=== PATIENT | female | born 2005 | race Caucasian/White ===

== ENCOUNTER 2025-09-13 14:11 | Outpatient (AMB) | payer OTHER, SELFPAY ==
--- NOTE | 2025-09-13 14:20 | A.OFFVIS_ITS ---
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 Moving forward, patient will be under Dr. Villagran's care as he is the rounding steeping press tender this week. 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 Patient states that she has noticed that in the last couple of months, patient has been having shortness of breath quickly with exertion specially with long distance races where at times it gets very hard to breathe and patient is fatigued. Patient also notes that there has been couple episodes where patient has had a lot of vomiting after finishing a race and that it takes couple hours for her to recover. She remembers 1 time patient had vomiting after finishing the race and later that evening and another episode the next morning. Patient states that this is very unusual for her however patient does note that these only happens when patient is in a competitive race and none during her training sessions where patient is running the same amount of time in length. Patient denies any known history of coronary artery disease, ischemic disease, or cardiomyopathy. Patient with no known family history of heart disease either. Patient otherwise is denying any associated symptoms of exertional chest pain, palpitations, dizziness, orthopnea, PND, leg edema, presyncope or syncope. Patient denies any use of stimulants such as marijuana, alcohol, illicit drugs, or tobacco use. [facility] Social History Alcohol intake: never Patient Tobacco Use Status: Never used Tobacco Review of Systems Const Denies daytime sleepiness, Denies difficulty sleeping, Denies snoring, Denies stops breathing during sleep and Denies weakness Card Denies chest pain, Denies rapid heart rate, Denies irregular heart rhythm, Denies claudication, Denies leg edema, Denies lightheadedness, Denies palpitations, Denies dyspnea, Denies dyspnea on exertion, Denies orthopnea, Denies paroxysmal nocturnal dyspnea and Denies slow heart rate Resp Denies cough, Denies dyspnea, Denies dyspnea on exertion and Denies snoring GI Reports no additional complaints, Denies hematochezia, Denies change in stool character and Denies dyspepsia Musc Denies abnormal gait, Denies muscle weakness and Denies numbness Neuro Denies abnormal gait, Denies numbness and Denies weakness Endo Denies palpitations Physical Exam Vital Signs: Last Vital Signs Pulse 58 09/13/25 14:22 BP 106/62 09/13/25 14:22 BMI result Body Mass Index 24.2 Const General: cooperative, healthy appearing, comfortable and no acute distress Orientation/consciousness: patient oriented x3 HEENT Head: Yes normal to inspection Neck Neck: Yes normal visual inspection, Yes trachea midline and Yes supple Chest Chest palpation & inspection: normal inspection of the chest Resp Effort & Inspection: normal respiratory effort Auscultation: clear to auscultation bilaterally, no crackles, no rales, no rhonchi and no wheezes Cardio Jugular venous distension: no JVD Palpation: normal PMI Rate: regular rate Rhythm: regular rhythm Heart sounds: S1 normal heart sound present, S2 normal heart sound present, no click, no gallops, no murmurs and no rubs Peripheral pulses: Peripheral pulses 2+ throughout GI Inspection: Yes normal to inspection Palpation (GI): Soft to palpation Auscultation: normal bowel sounds Skin General skin exam: no rashes or lesions noted Neuro General: patient oriented x3 Extrem General: Yes normal to inspection, No no pedal edema and No calf tenderness Psych Appearance: grossly normal Mental Status: mental status grossly normal Speech and movement: Normal speech and movement present Office Procedures EKG Details: EKG today showed sinus bradycardia with sinus arrhythmia at a rate of 58 beats per minute, incomplete right bundle branch block, nonspecific STT wave, [place], [place] [address]-[id number], Complete Assessment & Plan Assessment & Plan (1) SOB (shortness of breath): Code(s): R06.02 - Shortness of breath Category: Medical Plan: Patient's symptoms atypical in nature for cardiac etiology and more likely due to hyperventilation and stress specially knowing that her symptoms are only during competitive races even though she runs the same amount of time and length during her training sessions. However, to rule out cardiac etiology, we will get a treadmill stress test to look for any ischemic changes. Patient will also undergo an echocardiogram to look for LV systolic and diastolic dysfunction as well as cardiac structural abnormality. Patient also was made aware other possible causes such as stress and hyperventilation. Patient understanding of this. Blood pressure is within normal limits. Advised on heart healthy diet, regular exercise, stress mitigation strategies, adequate hydration, and avoidance of stimulants. Follow up after testings. In the interim, patient will call the office with any concerns or change in symptoms. This note was generated using voice recognition software. While every effort has been made to ensure accuracy and proper embroidery finisher, there may be occasional errors that could affect the content or meaning of the described symptoms. Orders: Orders CA echo transthoracic complete Today R06.02 - Shortness of breath AMB EKG-In Office Today R06.02 - Shortness of breath CA stress test Today R06.02 - Shortness of breath Coding Level of Care Code New Pt Level 4 (74749) Complex visit Add On G2211 Diagnoses SOB (shortness of breath) R06.02 CPT Codes EKG - CPT: 60799-[id number], Complete ([id number]) Time Spent (min) 32 Comment Time spent in reviewing the chart, test results, assessment, counseling and documentation.
[2025-09-13 14:22] VITALS: BP 106/62; PULSE 58; BMI 24.2
--- OUTSIDE RECORDS SUMMARY | 2025-09-13 23:07 | XMS_ITS | Clinical Summary ---
Author Organization [facility] Address [address] [place] [id number] Phone Care Team Providers Care Jewel Sorter Name Role Phone Pcp, Unknown Primary Care Provider Unavailabl e Allergies No known active allergies Medications No known medications Encounters Date Type Department Care Team Description 08/01/2025 5:45 PM EDT - 08/01/2025 9:54 PM EDT Emergency [facility] [address] [place] [address] Discharge Disposition: Home or Self Care from Last 3 Months Social History Tobacco Use Types Packs/Day Years Used Date Smoking Tobacco: Never Assessed Education Answer Date Recorded Are you interested in more education? Not on gonzalo e 06/06/2024 Are you concerned about learning? Not on file 06/06/2024 No 06/06/2024 No 06/06/2024 Food Answer Date Recorded Within the past 6 months we worried whether our food would run out before we got money to buy more. Never True 08/01/2025 Within the past 6 months the food we bought just didn't last and we didn't have enough money to get more. Never True Residential Stability Answer Date Recor ded What is your housing situation today? I have lavell sing 08/01/2025 How many times have you move d in the past 12 months? Zero (I did not move) 08/01/2025 Paying for Meds Answer Date Recorded Do you have trouble paying for medicines? No 08/01/2025 Paying Utility Bills Answer Date Record ed Do you have trouble paying your heating or elect ricity bill? No 08/01/2025 Transportation Answer Date Recorded Has the lack of transportati on kept you from medical appointments or from getting medications? No 08/01/2025 Digital Access Answer Date Recorded No 08/01/2025 Yes 08/01/2025 Do you have reliable internet access at home? Ye s 08/01/2025 Do you have a device (e.g., phone, tablet, computer) with a working camera? Yes 08/01/2025 Intimate Partner Violence Answer Date R ecorded Are you denied basic needs s uch as food, clothing, or medical care? No 08/01/2025 In the past 12 months have y ou been in a relationship with a person who hurts, threatens, or tries to control you? No 08/01/2025 Are you denied basic needs s uch as food, clothing, or medical care? No 08/01/2025 In the past 12 months have y ou been in a relationship with a person who hurts, threatens, or tries to control you? No 08/01/2025 Comments Unknown Sex and Gender Information Value Date Recorded Sex Assigned at Not on file Legal Sex Female 6:53 PM EST Gender Identity Not on file Sexual Orientation Not on file Last Filed Vital Signs Vital Sign Reading Time Taken Comments Blood Pressure 118/79 08/01/2025 9:21 PM EDT Pulse 64 08/01/2025 9:21 PM EDT Temperature 36.5 C (97.7 F) 08/01/2025 9:21 PM EDT Respiratory Rate 16 08/01/2025 9:21 PM EDT Oxygen Saturation 100% 08/01/2025 9:21 PM EDT Inhaled Oxygen Concentration - - Weight 63.5 kg (140 lb) 08/01/2025 4:58 PM EDT Height 165.1 cm (5' 5 ) 08/01/2025 4:58 PM EDT Body Mass Index 23.3 08/01/2025 4:58 PM EDT Plan of Treatment Health Maintenance Due Date Last Done Comments MMR VACCINES (1 of 1 - Stand gisele series) 2005 DEVELOPMENTAL/BEHAVIORAL SCR EENING (PHQ, PSC, or SWYC) 2007 COMBINED DTaP,Tdap,Td (1 - Tdap) 2011 DEPRESSION SCREENING 2016 SMOKING Hx and SMOKELESS TOB ACCO SCREENING 2017 VARICELLA VACCINES (1 of 2 - 13+ 2-dose series) 2017 HPV VACCINES (1 - 3-dose series) 2019 CHLAMYDIA SCREENING 2020 MENINGOCOCCAL VACCINES (B) ( 1 of 2 - Standard) 2020 ADOLESCENT UNIVERSAL LIPID SCREENING 2021 HEPATITIS C SCREENING 2022 HIV ONE-TIME SCREENING (18-6 5 YEARS) 2022 INFLUENZA VACCINE (#1) 2025 COVID-19 VACCINE ( - 2024-2 6 season) 2025 HEPATITIS A VACCINES Aged Out No long er eligible based on patient's age to complete this topic HIB VACCINES Aged Out No longer eligi ble based on patient's age to complete this topic MENINGOCOCCAL VACCINES (ACWY) Aged Out No longer eligible based on patient's age to complete this topic PNEUMOCOCCAL VACCINES (0-49 years) Aged Out No longer eligible based on patient's age to complete this topic Medical Devices Not on file Procedures Procedure Name Priority Date/Time Associated Diagnosis Comments BASIC METABOLIC PANEL (BMP) STAT 08/01/2025 8:35 PM EDT CREATINE KINASE (CK) Routine 08/01/2025 5:34 PM EDT LIPASE STAT 08/01/2025 5:34 PM EDT LFTS (HEPATIC PANEL) STAT 08/01/2025 5:34 PM EDT HCG, SERUM QUALITATIVE STAT 08/01/2025 5:34 PM EDT BASIC METABOLIC PANEL (BMP) STAT 08/01/2025 5:34 PM EDT CBC AND DIFFERENTIAL STAT 08/01/2025 5:34 PM EDT URINALYSIS WITH REFLEX TO URINE CULTURE STAT 08/01/2025 5:16 PM EDT from Last 3 Months Results * (ABNORMAL) Basic metabolic panel (08/01/2025 8:35 PM EDT) Only the most recent of2 resultswithin the time period is included. SODIUM 139 133 - 146 mmol/L [facility] CHLORIDE 105 96 - 108 mmol/L [facility] POTASSIUM 3.8 3.3 - 5.1 mmol/L [facility] CO2 24 21 - 35 mmol/L [facility] BUN 20(H) 6 - 19 mg/dL [facility] CREATININE 1.70(H) 0.5 - 1.5 mg/dL [facility] GLUCOSE 101(H) 70 - 99 mg/dL [facility] CALCIUM 8.2(L) 8.4 - 10.3 mg/dL [facility] EGFR 44(L) >59 mL/min/1.7 3m2 [facility] Comment:Estimated glomerular filtration rate calculated using the CKD-EPI refit equation. ANION GAP 14 10 - 20 mmol/L [facility] Blood 08/01/2025 8:35 PM EDT 08/01/2025 8:39 PM EDT us Phan Carmona PA-C LAB BLOOD BKR ORDERABLES Fin al Result Performing Organization Address City/[facility]/ZIP Co de Phone Number [address] [address] * HCG, serum qualitative (08/01/2025 5:34 PM EDT) HCG, QUALITATIVE Negative Negative IU/L [facility] Blood 08/01/2025 5:34 PM EDT 08/01/2025 5:39 PM EDT us Dayne Obrien MD LAB BLOOD BKR ORDERABLES Fi nal Result [address] [address] * LFTs (hepatic panel) (08/01/2025 5:34 PM EDT) ALKALINE PHOSPHATASE 77 39 - 117 U/L [facility] TOTAL BILIRUBIN 0.4 0.0 - 1.2 mg/dL [facility] DIRECT BILIRUBIN 0.1 0.0 - 0.2 mg/dL [facility] Bilirubin (Indirect) NOT CALCULATED 0 - 1.5 mg/dL [facility] AST 18 0 - 37 U/L [facility] ALT 11 0 - 40 U/L [facility] TOTAL PROTEIN 6.9 6.5 - 8.0 g/dL [facility] ALBUMIN 4.3 3.9 - 4.8 g/dL [facility] GLOBULIN 2.6 1 - 4.8 g/dL [facility] A/G Ratio 1.65 1.00 - 4.80 RATIO [facility] Blood 08/01/2025 5:34 PM EDT 08/01/2025 5:39 PM EDT us Dayne Obrien MD LAB BLOOD BKR ORDERABLES Fi nal Result Performing Organization Address City/State/[facility] Co de Phone Number [address] [address] * (ABNORMAL) CBC and differential (08/01/2025 5:34 PM EDT) WBC 6.60 4.00 - 11.00 K/uL [facility] RBC 4.02 4.00 - 5.20 M/uL [facility] HGB 11.7(L) 12.0 - 16.0 g/dL [facility] HCT 36.1 36.0 - 46.0 % [facility] PLT 222 150 - 450 K/uL [facility] MCV 89.8 80.0 - 100.0 fL [facility] MCH 29.1 27.0 - 31.0 pg [facility] MCHC 32.4 32.0 - 36.0 g/dL [facility] RDW 13.0 11.5 - 14.5 % [facility] MPV 8.9 8.4 - 12.0 [facility] NRBC 0.00 0.00 /100 WBCs [facility] ABSOLUTE NRBC 0.00 0.00 K/uL [facility] DIFF METHOD Auto [facility] NEUTS 61.6 48.0 - 76.0 % [facility] LYMPHS 24.4 18.0 - 41.0 % [facility] MONOS 12.1(H) 4.0 - 11.0 % [facility] EOS 1.2 0.0 - 5.0 % [facility] BASOS 0.5 0.0 - 1.5 % [facility] Granulocytes, immature (%) 0.2 0.0 - 0.9 % [facility] ABSOLUTE NEUTS 4.07 1.92 - 7.60 K/uL [facility] ABSOLUTE LYMPHS 1.61 0.72 - 4.10 K/uL [facility] ABSOLUTE MONOS 0.80 0.16 - 1.10 K/uL [facility] ABSOLUTE EOS 0.08 0.00 - 0.50 K/uL [facility] ABSOLUTE BASOS 0.03 0.00 - 0.15 K/uL [facility] Granulocytes, immature 0.01 0.00 - 0.09 K/uL [facility] Blood 08/01/2025 5:34 PM EDT 08/01/2025 5:39 PM EDT Dayne Obrien MD LAB BLOOD BKR ORDERABLES Fi nal Result [address] [address] * Lipase (08/01/2025 5:34 PM EDT) LIPASE 26 16 - 63 U/L [facility] Blood 08/01/2025 5:34 PM EDT 08/01/2025 5:39 PM EDT Dayne Obrien MD LAB BLOOD BKR ORDERABLES Fi nal Result [address] [address] * CPK (creatine kinase) (08/01/2025 5:34 PM EDT) CREATINE KINASE 116 21 - 215 U/L [facility] 08/01/2025 5:34 PM EDT 08/01/2025 5:39 PM EDT Dayne Obrien MD LAB BLOOD BKR ORDERABLES Fi nal Result Performing Organization Address [facility] Co de Phone Number [address] [address] * Urinalysis w/reflex Urine Culture (08/01/2025 5:16 PM EDT) COLOR Yellow Yellow [facility] CLARITY HAZY [facility] GLUCOSE Negative Negative [facility] BILI Negative Negative [facility] KETONES Negative Negative [facility] SPECIFIC GRAVITY 1.015 1.005 - 1.030 [facility] BLOOD Negative Negative [facility] PH 5.5 5.0 - 8.0 [facility] Protein-UA Negative Negative [facility] NITRITE Negative Negative [facility] Leukocyte esterase, ur Negative Negative [facility] Urine (Urine) 08/01/2025 5:1 6 PM EDT 08/01/2025 5:22 PM EDT Dayne Obrien MD LAB URINE ORDERABLES Final Result Performing Organization Address [facility] Co de Phone Number [address] [address] from Last 3 Months Insurance RADHA [facility]LY [facility] CIGNA WELLFLEET CIGNA WELLMTEET CIGNA WELLFLEET [facility] WELLFORMERLY [facility] [place] WELL[employer]LY [facility] Care Teams Jewel Sorter Relationship Specialty Start Date End Date Pcp, Unknown PCP - General 08/01/25 Additional Source Comments The information contained in this document represents components of the legal health record. It is not the complete legal health record.[facility]
== END 2025-09-13 15:02 | disposition home or self-care (01) ==
LOC: HO.HCS 14:12
PROVIDERS: PCP Student in an Organized Health Care Education/Training Program
DX: R06.02 Shortness of breath (principal)
CPT/HCPCS: 93010; 99204; G2211

== ENCOUNTER → 2025-09-13 14:11 | Outpatient (BNVA) | payer OTHER, SELFPAY | PROVIDERS: PCP Student in an Organized Health Care Education/Training Program | DX: R06.02 Shortness of breath (principal) | CPT/HCPCS: 93005 ==